=== PATIENT | female | born 1935 | race Hispanic/Latino ===

== ENCOUNTER 2016-07-20 08:19 | Outpatient (CLI) | payer MEDICARE ==
--- NOTE | 2016-07-20 16:21 | Magnetic Resonance Report ---
MRI ABDOMEN WITHOUT AND WITH CONTRAST : 07/20/16 CLINICAL: Pancreatic ductal dilatation by ultrasound. COMPARISON :Abdominal ultrasound 05/18/16 TECHNIQUE: Axial T1 in phase and opposed phase, coronal and axial T2 and axial T2 fat sat sequences plus multiphase postcontrast T1 fat sat sequences on a 1.5 Jeanine magnet. 15.0 cc of Multihance was injected intravenously for the contrast portion of the exam and consent was obtained prior to the administration of the contrast. FINDINGS: The liver is small with normal in signal. The right lobe measures 10.3 cm in length. No liver mass or nodularity. No mass or enhancing lesion of the liver or pancreas. Normal gallbladder and bile ducts. The pancreatic duct measures 2.8 mm maximum dimension. No evidence of calculus or mass. The pancreas is normal size with normal signal. No ascites. The adrenal glands and kidneys are normal. The renal collecting systems and ureters are nondilated. Normal aorta and inferior vena cava. The small bowel and colon are unremarkable. The bones and soft tissues are unremarkable. IMPRESSION: 1. Small liver suggestive of cirrhosis but no other signs of cirrhosis. 2. No signs of portal hypertension. 3. Normal biliary tract. 4. Mild pancreatic ductal dilatation with no identified etiology. No signs of chronic pancreatitis. 5. No mass.
== END 2016-07-20 08:20 | disposition home or self-care (01) ==
LOC: SPVIMAG 08:19
PROVIDERS: ATTEND Internal Medicine Gastroenterology
DX: K86.89 Other specified diseases of pancreas (principal)
CPT/HCPCS: 74183; A9577